=== PATIENT | female | born 1960 | race Caucasian/White ===

== ENCOUNTER 2020-09-08 11:09 | Emergency (ER) | payer OTHER ==
[~2020-09-08] VITALS: Ht 157.5 cm; Wt 72.6 kg
[2020-09-08] MEDS ORDERED: NEXIUM20 M1 PO (11:25)
[2020-09-08] MEDS ORDERED: PLAQUENIL200 MG PO (11:26)
[2020-09-08] MEDS ORDERED: FLEXERIL PO (13:29)
[2020-09-08] MEDS ORDERED: NORCO 5-325 TA1 EAC2 PO (13:29)
[2020-09-08 13:32] VITALS: BP 142/89
== END 2020-09-08 13:32 | disposition home or self-care (01) ==
LOC: M.ERS 11:09
DX: S30.0XXA Contusion of lower back and pelvis, initial encounter (principal); M06.9 Rheumatoid arthritis, unspecified; V49.69XA Unspecified car occupant injured in collision with other motor vehicles in traffic accident, initial encounter; Y93.89 Activity, other specified; Y92.89 Other specified places as the place of occurrence of the external cause; Y99.8 Other external cause status